=== PATIENT | female | born 1925 | race Caucasian/White ===

== ENCOUNTER 2016-06-06 10:06 | Emergency (ER) | payer MEDICARE ==
[~2016-06-06] VITALS: Ht 172.7 cm; Wt 67.0 kg
[~2016-06-06 10:06] MED LIST: ALPR0.5T99 PO; ENAL20TA81 PO; FLUO-1 PO; LEVO100T60 PO; TYLE3 PO; ZOCO40TA PO
[2016-06-06 10:10] VITALS: BP 151/82; PULSE 67; RESP 16; TEMP 98.2; O2SAT 97
[2016-06-06] MEDS ORDERED: LIDOCAINE 1%/EPINEPHrine 1:100,000 SOLN 20 ML VIAL INFIL ONE (10:15)
[2016-06-06] MEDS ORDERED: TETANUS/DIPHTHERIA TOXOID ADULT 0.5 ML VIAL IM ONE (10:15)
[2016-06-06] MEDS ORDERED: BP MED (10:16)
--- NOTE | 2016-06-06 10:16 | PD ---
HPI Chief Complaint: Laceration/Skin Injury Time Seen by Provider: 10:09 Travel History International Travel<30 days: No Contact w/Intl Traveler<30days: No Traveled to known affect area: No History of Present Illness HPI This is an 89-year-old female who presents to the emergency department having been walking on a treadmill when she was getting off and she scraped her leg against this metal siding of the treadmill tearing her skin. Patient has pain involving her right leg but otherwise denies any injuries. She doesn't remember her last tetanus shot. She's not sure what her medications are but she doesn't think she is on any blood thinners. PFSH Past Medical History Arthritis: Yes (OSTEOPORISIS) Anxiety: Yes Cardiovascular Problems: Yes (HTN) High Cholesterol: Yes Diabetes: No Diminished Hearing: No Herniated Disk: Yes Hypertension: Yes Thyroid Disease: Yes Tetanus Vaccination: Unknown ?: Not Past Surgical History Cholecystectomy: Yes Hysterectomy: Yes Social History Alcohol Use: Yes (3 TIMES A WEEK) Tobacco Use: No Substance Use: No Allergies-Medications (Allergen,Severity, Reaction): Coded Allergies: No Known Allergies (Verified , 06/06/16) Reported Meds & Prescriptions Reported Meds & Active Scripts Active Keflex (Cephalexin) 500 Mg Cap 500 Mg PO Q6H 5 Days Reported [Bp Med] Review of Systems General / Constitutional: No: Fever, Chills Gastrointestinal: No: Nausea, Vomiting Physical Exam Narrative GENERAL: Well-appearing, no acute distress, nontoxic SKIN: Warm and dry. HEAD: Atraumatic. Normocephalic. ENT: No nasal bleeding or discharge. Moist mucous membranes MUSCULOSKELETAL: Laceration and skin tear of the right alaniz, 8 cm x 6 cm with 2 large flaps and one small flap with some underlying exposed muscle belly and adipose tissue NEUROLOGICAL: Awake and alert. No obvious cranial nerve deficits. Motor grossly within normal limits. Normal speech. PSYCHIATRIC: Appropriate mood and affect; insight and judgment normal. Data Data Last Documented VS Vital Signs Date Time Temp Pulse Resp B/P Pulse Ox O2 Delivery O2 Flow Rate FiO2 06/06/16 10:10 98.2 67 16 151/82 97 Orders Tetanus/Diphtheria Tox Adult (Tetanus/Di (06/06/16 10:15) Lidocai-Epi 1%-1:100,000 Inj (Xylocaine- (06/06/16 10:15) [facility] Medical Decision Making Medical Screen Exam Complete: Yes Emergency Medical Condition: Yes Interpretation(s) afebrile, no tachycardia, hypertension Differential Diagnosis Laceration Narrative Course This is an 89-year-old female who presents to the emergency department with a laceration to the right alaniz with exposed underlying muscle belly. Laceration was complex and was repaired as best possible. Patient does have missing tissue and flap did not cover her entire area. I did loan counselor the patient and her son on risk of infection and advised that they may consider following up with the plastic surgeon regarding healing. Patient already has a home healthcare agency set up so I recommended that they see if the home healthcare agency can participate in wound care. Procedures Procedure Narrative LACERATION LOCATION: Right lower extremity LENGTH: 8 x 6, complex NUMBER OF STITCHES/MARK: 25 REPAIR: The area of the laceration was prepped with Betadine and sterilely draped. The laceration was infiltrated with 10 cc of 1% lidocaine with epinephrine. The wound was copiously irrigated and explored without evidence of foreign body, tendon injury or neurovascular injury. The wound was closed using 3 deep 4-0 Vicryl sutures and 22 4-0 Prolene sutures. This was a double layer repair. A sterile dressing was applied. The patient was advised to keep the dressing clean and dry. Patient tolerated the procedure well. Diagnosis Primary Impression: Laceration of right lower leg Qualified Code: S81.811A - Laceration of right lower leg, initial encounter Referrals: Tan Silva MD 2 weeks Patient Instructions: General Instructions Additional Instructions: If you develop fevers, redness, swelling, or discharge from your wound return to the emergency room. Keep your wound dry for 24 hours. After that time, wash gently with warm soap and water. Do not use peroxide. Do not soak in baths or go swimming. Have your wound evaluated for suture removal in 14 days. Med/Other Pt SpecificInfo: Prescription(s) given Scripts Cephalexin (Keflex)500 Mg [id number] Mg PO Q6H 5 Days Ref 0 Prov:Sena Severino MD 06/06/16 Disposition: 01 DISCHARGE HOME Condition: Stable Sena Severino MD Jun 06, 2016 10:16
[2016-06-06] MEDS ORDERED: CEPH-460 PO (12:02)
[2016-06-06 12:11] VITALS: BP 161/79
== END 2016-06-06 12:12 | disposition home or self-care (01) ==
LOC: PHED 10:06
DX: S81.811A Laceration without foreign body, right lower leg, initial encounter (principal); I10 Essential (primary) hypertension; E78.00 Pure hypercholesterolemia, unspecified; E07.9 Disorder of thyroid, unspecified; W26.8XXA Contact with other sharp object(s), not elsewhere classified, initial encounter; Y93.A1 Activity, exercise machines primarily for cardiorespiratory conditioning; Z23 Encounter for immunization
CPT/HCPCS: 12034; 90471; 90714

== ENCOUNTER 2016-10-02 06:21 | Emergency (ER) | payer MEDICARE ==
[~2016-10-02] VITALS: Ht 167.6 cm; Wt 66.0 kg
[~2016-10-02 06:21] MED LIST changes: -ALPR0.5T99 PO; +BP MED; +CEPH-460 PO; -ENAL20TA81 PO; -FLUO-1 PO; -LEVO100T60 PO; -TYLE3 PO; -ZOCO40TA PO
[2016-10-02 06:29] VITALS: BP 112/72; PULSE 73; RESP 18; TEMP 97.5; O2SAT 96
[2016-10-02] MEDS ORDERED: ASPI81CH37 CHEW (06:30)
[2016-10-02] MEDS ORDERED: CALTTAB5 PO (06:30)
[2016-10-02] MEDS ORDERED: OXYB10TA PO (06:30)
[2016-10-02] MEDS ORDERED: ENAL20TA PO (06:30)
[2016-10-02] MEDS ORDERED: ALPR0.5T3 PO (06:30)
[2016-10-02] MEDS ORDERED: ATOR20TA15 PO (06:30)
--- NOTE | 2016-10-02 06:47 | PD ---
HPI Chief Complaint: Fall Time Seen by Provider: 06:40 Travel History International Travel<30 days: No Contact w/Intl Traveler<30days: No Traveled to known affect area: No History of Present Illness HPI The patient is an 89-year-old female that fell at [facility]. There was no loss of consciousness. The patient did hit her head and there is a hematoma of the scalp. She also has a thin skin laceration of her right knee. There was no nausea or vomiting. The patient does have a history of dementia but she is alert and oriented. She denies any headache. She denies any focal neurologic change. The patient remembers the fall and states he was trying to reach for her walker when this happened. She simply lost balance and fell. There is no syncopal spell and no loss of consciousness. PFSH Past Medical History Arthritis: Yes (OSTEOPORISIS) Anxiety: Yes Cardiovascular Problems: Yes High Cholesterol: Yes Diabetes: No Diminished Hearing: No Herniated Disk: Yes Hypertension: Yes Immunizations Current: Yes Thyroid Disease: Yes Tetanus Vaccination: < 5 Years Influenza Vaccination: Yes ?: Not Past Surgical History Cholecystectomy: Yes Hysterectomy: Yes Social History Alcohol Use: Yes (3 TIMES A WEEK) Tobacco Use: No Substance Use: No Allergies-Medications (Allergen,Severity, Reaction): Coded Allergies: No Known Allergies (Verified , 10/02/16) Reported Meds & Prescriptions Reported Meds & Active Scripts Active Reported Enalapril (Enalapril Maleate) 20 Mg Tab 20 Mg PO DAILY Caltrate 600 (Calcium Carbonate) 1,500 Mg Tab 1 Tab PO DAILY Atorvastatin (Atorvastatin Calcium) 20 Mg Tab 20 Mg PO HS Alprazolam 0.5 Mg Tab 0.5 Mg PO BID PRN Aspirin Low Dose (Aspirin) 81 Mg Chew 81 Mg CHEW DAILY Oxybutynin ER 24 HR (Oxybutynin Chloride) 10 Mg Tab 10 Mg PO DAILY Review of Systems Except as stated in HPI: all other systems reviewed are Neg Physical Exam Narrative GENERAL: Well-nourished, well-developed patient who is alert and oriented 3 in minimal apparent distress with her scalp hematoma and thin skin laceration of the right knee. The vital signs show temperature 97.5 but are otherwise normal. SKIN: Focused skin assessment warm/dry. There is a 3 cm diameter hematoma right scalp. There is no associated bony deformity. HEAD: Normocephalic. Neither raccoon eyes or zhu sign is present. EYES: No scleral icterus. No injection or drainage. NECK: Supple, trachea midline. No JVD or lymphadenopathy. There is no neck tenderness present and, specifically, there is no posterior spinous process tenderness or deformity. CARDIOVASCULAR: Regular rate and rhythm without murmurs, gallops, or rubs. RESPIRATORY: Breath sounds equal bilaterally. No accessory muscle use. GASTROINTESTINAL: Abdomen soft, non-tender, nondistended. MUSCULOSKELETAL: No cyanosis, or edema. BACK: Nontender without obvious deformity. No CVA tenderness. There is no T- spine or LS-spine tenderness or deformity. ENT: There is no hemotympanum present. Data Data Last Documented VS Vital Signs Date Time Temp Pulse Resp B/P Pulse Ox O2 Delivery O2 Flow Rate FiO2 10/02/16 08:43 68 16 116/69 10/02/16 07:15 96 Room Air 10/02/16 06:29 97.5 Orders Wound Care (10/02/16 06:40) Ct Brain W/O Iv Contrast(Rout) (10/02/16 06:48) [facility] Medical Decision Making Medical Screen Exam Complete: Yes Emergency Medical Condition: Yes Medical Record Reviewed: Yes Differential Diagnosis Scalp hematoma, skull fracture, intracranial bleed, thin skin laceration knee Narrative Course Is now 0700 and the patient is transferred to Dr. Mauro. Shahab Nickerson MD October 02, 2016 06:47
[2016-10-02 07:14] VITALS: BP 146/73; PULSE 73; RESP 16; O2SAT 96
--- NOTE | 2016-10-02 07:31 | RADHPO ---
EXAM DATE/TIME: 10/02/2016 07:11 [facility] COMPARISON: No previous studies available for comparison. INDICATIONS : Mechanical fall. Right frontal head trauma. RADIATION DOSE: 63.13 CTDIvol (mGy) MEDICAL HISTORY : Hypertension. Dementia. Hypothyroidism. SURGICAL HISTORY : Cholecystectomy. Hysterectomy. ENCOUNTER: Initial ACUITY: 1 day PAIN SCALE: 1/10 LOCATION: Right frontal TECHNIQUE: Multiple contiguous axial images were obtained of the head. Using automated exposure control and adj ustment of the mA and/or kV according to patient size, radiation dose was kept as low as reasonably a chievable to obtain optimal diagnostic quality images. FINDINGS: CEREBRUM: The ventricles are normal for age. No evidence of midline shift, mass lesion, hemorrhage or acute in farction. No extra-axial fluid collections are seen. POSTERIOR FOSSA: The cerebellum and brainstem are intact. The 4th ventricle is midline. The cerebellopontine angle i s unremarkable. EXTRACRANIAL: The visualized portion of the orbits is intact. SKULL: The calvaria is intact. No evidence of skull fracture. Right frontal scalp swelling. CONCLUSION: 1. No acute intracranial abnormalities. Right frontal scalp hematoma. Michael Lang MD on October 02, 2016 at 7:25 Board Certified Radiologist. This report was verified electronically.
--- NOTE | 2016-10-02 07:42 | PD ---
Physical Exam Date Seen by Provider: October 02, 2016 Time Seen by Provider: 07:41 Narrative Patient signed out to me at [address] Nickerson, please see his note for further details. Patient awaiting CAT scan for release. Last [address] 10/02/16 0648 Signed Impressions: Service Date/Time: Sunday, October 02, 2016 07:11 - CONCLUSION: 1. No acute intracranial abnormalities. Right frontal scalp hematoma. Michael Lang MD CT of the brain is negative for any signs of acute intracranial injuries. Patient has a contusion to the right forehead. At this point, my plan would be to release the patient with follow-up to primary care physician. Return for any worsening in pain, vomiting, or new issues as needed. Data Data Last Documented VS Vital Signs Date Time Temp Pulse Resp B/P Pulse Ox O2 Delivery O2 Flow Rate FiO2 10/02/16 07:15 16 96 Room Air 10/02/16 07:14 73 146/73 10/02/16 06:29 97.5 Orders Wound Care (10/02/16 06:40) Ct Brain W/O Iv Contrast(Rout) (10/02/16 06:48) [facility] Medical Record Reviewed: Yes Supervised Visit with PADMINI: No Diagnosis Primary Impression: Minor head injury Disposition: 03 DISCHARGE TO SNF Condition: Stable Cindy Natarajan MD October 02, 2016 07:42
[2016-10-02 08:43] VITALS: BP 116/69
== END 2016-10-02 08:46 ==
LOC: PHED 06:21
DX: S00.83XA Contusion of other part of head, initial encounter (principal); S81.011A Laceration without foreign body, right knee, initial encounter; M81.0 Age-related osteoporosis without current pathological fracture; F03.90 Unspecified dementia, unspecified severity, without behavioral disturbance, psychotic disturbance, mood disturbance, and anxiety; E78.00 Pure hypercholesterolemia, unspecified; I10 Essential (primary) hypertension; W19.XXXA Unspecified fall, initial encounter; Y93.89 Activity, other specified; Y92.129 Unspecified place in nursing home as the place of occurrence of the external cause; Y99.8 Other external cause status
CPT/HCPCS: 70450

== ENCOUNTER 2017-06-01 14:11 | Emergency (ER) | payer MEDICARE ==
[~2017-06-01 14:11] MED LIST changes: +ALPR0.5T3 PO; +ASPI81CH6 CHEW; +ATOR20TA15 PO; -BP MED; +CALTTAB5 PO; -CEPH-460 PO; +ENAL20TA PO; +OXYB10TA PO
[2017-06-01 14:37] VITALS: BP 117/55; PULSE 62; RESP 16; TEMP 98.2; O2SAT 95
--- NOTE | 2017-06-01 14:42 | PD ---
HPI . Fall Chief Complaint: Fall Time Seen by Provider: 14:32 Travel History International Travel<30 days: No Contact w/Intl Traveler<30days: No Traveled to known affect area: No History of Present Illness HPI This patient presents to us value exacerbation status post a fall. She has dementia. The patient does not have any complaints. Further history is not reliable. PFSH Past Medical History Arthritis: Yes (OSTEOPORISIS) Anxiety: Yes Cardiovascular Problems: Yes High Cholesterol: Yes Diabetes: No Diminished Hearing: No Herniated Disk: Yes Hypertension: Yes Immunizations Current: Yes Thyroid Disease: Yes ?: Not Past Surgical History Cholecystectomy: Yes Hysterectomy: Yes Social History Alcohol Use: Yes (3 TIMES A WEEK) Tobacco Use: No Substance Use: No Allergies-Medications (Allergen,Severity, Reaction): Coded Allergies: No Known Allergies (Verified , 10/02/16) Reported Meds & Prescriptions Reported Meds & Active Scripts Active Reported Enalapril (Enalapril Maleate) 20 Mg Tab 20 Mg PO DAILY Caltrate 600 (Calcium Carbonate) 1,500 Mg Tab 1 Tab PO DAILY Atorvastatin (Atorvastatin Calcium) 20 Mg Tab 20 Mg PO HS Alprazolam 0.5 Mg Tab 0.5 Mg PO BID PRN Aspirin Low Dose (Aspirin) 81 Mg Chew 81 Mg CHEW DAILY Oxybutynin ER 24 HR (Oxybutynin Chloride) 10 Mg Tab 10 Mg PO DAILY Review of Systems ROS Limitations: Poor Historian Except as stated in HPI: all other systems reviewed are Neg Physical Exam Narrative GENERAL: Awake and alert and in no acute distress. SKIN: Warm and dry. Superficial abrasion on the right knee. HEAD: Normocephalic. Contusion on the left posterior scalp. EYES: Pupils are equal. Extraocular movements are intact. NECK: Normal range of motion. Nontender. MUSCULOSKELETAL: She allows passive range of motion of all joints with no pain. There are no obvious long bone injuries. NEUROLOGICAL: Nonfocal. PSYCHIATRIC: Appropriate mood and affect. Data Data Last Documented VS Vital Signs Date Time Temp Pulse Resp B/P (MAP) Pulse Ox O2 Delivery O2 Flow Rate FiO2 06/01/17 14:37 98.2 62 16 117/55 (75) [address] Brain W/O Iv Contrast(Rout) (06/01/17 14:32) [facility] Medical Decision Making Medical Screen Exam Complete: Yes Emergency Medical Condition: Yes Differential Diagnosis My differential diagnosis of head trauma includes but is not limited to scalp contusion, concussion, intracerebral hemorrhage. Narrative Course This patient presents for the evaluation of an injury to her head. CT is pending. Last Impressions Head CT 06/01/17 8002 Signed Impressions: Service Date/Time: Thursday, June 01, 2017 15:05 - CONCLUSION: Unremarkable study. Huong Hurley MD Diagnosis Primary Impression: Scalp contusion Qualified Codes: S00.03XA - Contusion of scalp, initial encounter Patient Instructions: General Instructions, Scalp Contusion in Adults (ED) Disposition: 01 DISCHARGE HOME Condition: Stable Judy Sandoval MD Jun 01, 2017 14:42
--- NOTE | 2017-06-01 15:41 | RADRPT ---
EXAM DATE/TIME: 06/01/2017 15:05 [facility] COMPARISON: CT BRAIN W/O CONTRAST, October 02, 2016, 7:11. INDICATIONS : Recent fall. Altered mental status. RADIATION DOSE: 61.36 CTDIvol (mGy) MEDICAL HISTORY : Hypertension. Hypercholesterolemia. SURGICAL HISTORY : Cholecystectomy. Hysterectomy. ENCOUNTER: Initial ACUITY: 1 day PAIN SCALE: 4/10 LOCATION: cranial TECHNIQUE: Multiple contiguous axial images were obtained of the head. Using automated exposure control and adj ustment of the mA and/or kV according to patient size, radiation dose was kept as low as reasonably a chievable to obtain optimal diagnostic quality images. DICOM format image data is available electro nically for review and comparison. FINDINGS: There is no evidence for intracranial hemorrhage, mass effect, mass lesions, edema, or extra-axial fl uid collections. The visualized bony structures appear intact. The ventricles are normal size for t he patient's age. There are no signs of acute infarction for technique. CONCLUSION: Unremarkable study. Huong Hurley MD on June 01, 2017 at 15:38 Board Certified Radiologist. This report was verified electronically.
== END 2017-06-01 16:32 | disposition home or self-care (01) ==
LOC: PHED 14:11
DX: S00.03XA Contusion of scalp, initial encounter (principal); F03.90 Unspecified dementia, unspecified severity, without behavioral disturbance, psychotic disturbance, mood disturbance, and anxiety; W19.XXXA Unspecified fall, initial encounter; Z91.81 History of falling
CPT/HCPCS: 70450